=== PATIENT | male | born 1945 | race American Indian/Alaskan Native ===

== ENCOUNTER 2017-06-21 05:46 | Inpatient (IN) | payer MEDICARE, BC ==
[2017-06-08 09:29] VITALS: BMI 25.0
[2017-06-21] MEDS ORDERED: Propofol 10 mg/ml Inj (20 ML) ONE (07:01)
[2017-06-21] MEDS ORDERED: Midazolam 2 MG/2 ML VIAL ONE (07:01)
[2017-06-21] MEDS ORDERED: Lidocaine Hydrochloride 5 ML INJ ONE (07:01)
[2017-06-21] MEDS ORDERED: Lidocaine 2% Jelly (Uro-Jet) ONE (07:49)
[2017-06-21] MEDS ORDERED: Lactated Ringer's 1,000 ML IV ONE (08:05)
[2017-06-21] MEDS: cefTRIAXone IV 1 gm in Dextros 50 ML IVPB ONE ×2 (08:10→08:22)
[2017-06-21] MEDS ORDERED: HYDROmorphone 0.5 mg/0.5 ml ISec IVP PRN (08:48)
[2017-06-21] MEDS ORDERED: Oxycodone/Acetaminophen 5/325 mg Tab PO PRN (08:54)
--- NOTE | 2017-06-21 08:57 | PCM.SURG1 ---
Surgeon's Initial Post Op Note - Surgeon's Notes Surgeon: elsa palafox Liquor Tester: none Type of Anesthesia: General LMA Pre-Operative Diagnosis: bph Operative Findings: same Post-Operative Diagnosis: same Operation Performed: cysto. turp Specimen/Specimens Removed: urine, prostate Estimated Blood Loss: EBL {In ML}: 50 Blood Products Given: N/A Post-Op Condition: Good Date of Surgery/Procedure: 06/21/17 Time of Surgery/Procedure: 08:50
[2017-06-21] MEDS: Potassium Ch 20mEq in D5-1/2NS 1,000 ML IV SCH ×2 (11:45→12:08)
[2017-06-21] MEDS: cefTRIAXone IV 1 gm in Dextros 50 ML IVPB SCH (12:08)
[2017-06-21 12:44] VITALS: RESP 20
--- NOTE | 2017-06-21 18:33 | OP ---
PROCEDURE DATE: 06/21/2017 PREOPERATIVE DIAGNOSIS: Benign prostatic hypertrophy. POSTOPERATIVE DIAGNOSIS: Benign prostatic hypertrophy. PROCEDURE: Cystoscopy and transurethral resection of prostate. SURGEON: Dr. Divina Larsen. DESCRIPTION OF PROCEDURE: The patient received perioperative antibiotics. The patient received general anesthesia via laryngeal mask airway. The patient was placed in lithotomy position. Sequential compression stockings were applied. The genitalia prepped and draped in a sterile fashion. A 22-Moldovan cystoscope sheath was introduced under direct vision. The urethra, prostate, and bladder were inspected with 30-degree lens. FINDINGS: There was no stricture in the anterior urethra. There was evidence of trilobar prostatic hypertrophy. The prostatic urethra was occlusive. The prostatic urethra was 3 cm at length. There was no bladder neck contracture. There was no bladder tumor and there was no bladder stone. There was mild bladder trabeculation. The ureteral orifices were identified. There was no focal mucosal lesions within the bladder. Cystoscope and sheath were removed. A 26-Moldovan continuous flow resectoscope sheath was introduced under direct vision, using the visual obturator. The resectoscope was then inserted. The obstructing prostatic tissue was resected as follows. The suction was began at the bladder neck on the floor. Thereafter, the tissue was resected. Subsequently, the right lateral lobe and left lateral lobe were resected. Thereafter, the floor tissue and apical prostatic tissue were resected with index finger within the [place]ellie drape in the rectum. Hemostasis was achieved after each suction resection. The prostatic chips were reviewed, using the [employer] scientific evacuator. The resectoscope was reinserted. Hemostasis was complete. There was no residual prostatic chips. The ureteral orifices were intact. The resectoscope and sheath removed. A Munoz catheter was inserted. Bladder drainage was clear. The patient tolerated the procedure well without complication. Divina Larsen MD cc: Divina Larsen MD
--- NOTE | 2017-06-21 19:35 | CP.PCM.CON ---
Past Patient History - Past Medical History & Family History Past Medical History?: Yes - Past Social History Smoking Status: Never Smoked - CARDIAC Hx Hypercholesterolemia: Yes Hx Hypertension: Yes Hx Peripheral Edema: Yes (NO LONGER) - PULMONARY Hx Respiratory Disorders: No - NEUROLOGICAL Hx Neurological Disorder: No - HEENT Hx HEENT Problems: Yes (RINGING IN EARS) Hx Cataracts: Yes - RENAL Hx Chronic Kidney Disease: No - ENDOCRINE/METABOLIC Hx Endocrine Disorders: No - HEMATOLOGICAL/ONCOLOGICAL Hx Blood Disorders: Yes Hx Blood Transfusions: Yes Hx Blood Transfusion Reaction: No Hx Cancer: Yes (SQUAMOS LIP) - INTEGUMENTARY Hx Dermatological Problems: Yes Hx Eczema: Yes (NOT AT PRESENT) Hx Squamous Cell: Yes (LIP) - MUSCULOSKELETAL/RHEUMATOLOGICAL Hx Musculoskeletal Disorders: Yes Hx Arthritis: Yes Hx Falls: Yes - GASTROINTESTINAL Hx Gastrointestinal Disorders: Yes Hx Ulcer: Yes (GASTRIC ) - GENITOURINARY/GYNECOLOGICAL Hx Genitourinary Disorders: Yes Hx Prostate Problems: Yes - PSYCHIATRIC Hx Psychophysiologic Disorder: Yes (PTSD) Hx Substance Use: No - SURGICAL HISTORY Hx Surgeries: Yes Hx Appendectomy: Yes Other/Comment: REMOVAL SQUAMOS CA LIP HEMORRHOIDECTOMY - ANESTHESIA Hx Anesthesia: Yes Hx Anesthesia Reactions: No Hx Malignant Hyperthermia: No Has any member of the family had a problem w/ anesthesia?: No Meds Allergies/Adverse Reactions: Allergies Allergy/AdvReac Type Severity Reaction Status Date / Time codeine Allergy Intermediate RASH Verified 06/08/17 09:29 - Medications Medications: Current Medications Ceftriaxone Sodium (Rocephin Iv 1 Gm Duplex) 50 mls @ 100 mls/hr IVPB DAILY [facility] Last Admin: 06/21/17 12:08 Dose: Not Given Potassium Chloride/Dextrose/Sod Cl (Potassium Chl 20 Meq In D5-1/2ns) 1,000 mls @ 75 mls/hr IV .[id number] [facility] Last Admin: 06/21/17 12:08 Dose: Not Given Oxycodone/Acetaminophen (Percocet 5/325 Mg Tab) 1 tab PO Q4H PRN PRN Reason: Pain, moderate (4-7) Stop: 06/24/17 08:55 Last Admin: 06/21/17 15:45 Dose: 1 tab Results - Vital Signs Recent Vital Signs: Last Vital Signs Temp 98.3 F 06/21/17 15:10 Pulse 73 06/21/17 15:10 Resp 20 09/11/17 15:10 BP 123/68 06/21/17 15:10 Pulse Ox 97 06/21/17 15:10
[2017-06-21 23:29] VITALS: BP 104/64; TEMP 98.8
[2017-06-22] MEDS: Potassium Ch 20mEq in D5-1/2NS 1,000 ML IV SCH (04:00)
[2017-06-22 07:27] LABS: HEMATOCRIT 40.2 % (35.0-51.0); MEAN CELL VOLUME 82.2 fL (80.0-94.0); MEAN CORPUSCULAR HEMOGLOBIN 28.2 pg (27.0-31.0); MEAN CORPUSCULAR HGB CONC 34.3 g/dL (33.0-37.0); MEAN PLATELET VOLUME 9.5 fL (7.2-11.7); RED CELL DISTRIBUTION WIDTH 15.3 % (11.5-14.5); WHITE BLOOD COUNT 7.5 K/uL (4.8-10.8)
[2017-06-22 07:33] VITALS: PULSE 60; O2SAT 97
[2017-06-22 07:51] LABS: CHLORIDE 105 mmol/L (98-107)
[2017-06-22 07:52] LABS: POTASSIUM 3.5 mmol/L (3.6-5.2); SODIUM 139 mmol/L (132-148)
[2017-06-22 07:54] LABS: GFR AFRICAN-AMERICAN > 60
[2017-06-22 07:55] LABS: BLOOD UREA NITROGEN 15 mg/dL (9-20); CALCIUM 8.7 mg/dl (8.6-10.4); CARBON DIOXIDE 24 mmol/L (22-30); GLUCOSE,RANDOM 101 mg/dL (75-110)
[2017-06-22] MEDS: cefTRIAXone IV 1 gm in Dextros 50 ML IVPB SCH (10:21)
== END 2017-06-22 13:25 | disposition home or self-care (01) | DRG 714 ==
LOC: C.SDS 05:46 → C.9E 08:51 → C.3T 10:01
PROVIDERS: ADMIT Urology; ATTEND Urology
PROC: 0VB08ZZ Excision of Prostate, Via Natural or Artificial Opening Endoscopic (ICD-10-PCS; principal; 2017-06-21 07:30)
PROC: 0TJB8ZZ Inspection of Bladder, Via Natural or Artificial Opening Endoscopic (ICD-10-PCS; 2017-06-21 07:30)
DX: N40.1 Benign prostatic hyperplasia with lower urinary tract symptoms (principal); F43.10 Post-traumatic stress disorder, unspecified; R33.8 Other retention of urine

== ENCOUNTER 2017-08-09 09:04 | Day surgery (SDC) | payer MEDICARE, BC ==
[2017-06-08 09:29] VITALS: BMI 25.0
[2017-08-09] MEDS ORDERED: Lactated Ringer's 500 ML IV ONE ×2 (10:16)
[2017-08-09] MEDS ORDERED: cefTRIAXone IV 1 gm in Dextros 50 ML IVPB ONE (10:36)
[2017-08-09] MEDS ORDERED: Lidocaine 2% Jelly (Uro-Jet) ONE (10:37)
[2017-08-09] MEDS ORDERED: Iohexol 240 (50 ml) ONE (10:37)
[2017-08-09] MEDS ORDERED: Propofol 10 mg/ml Inj (20 ML) ONE (10:44)
[2017-08-09] MEDS ORDERED: HYDROmorphone 0.5 mg/0.5 ml ISec IVP PRN (11:17)
--- NOTE | 2017-08-09 12:16 | PCM.SURG1 ---
Surgeon's Initial Post Op Note - Surgeon's Notes Surgeon: elsa palafox Finance Professor: none Type of Anesthesia: Moderate Sedation{RN} Pre-Operative Diagnosis: urethral stricture Operative Findings: same Post-Operative Diagnosis: same Operation Performed: urethral dilation. cystoscopy Specimen/Specimens Removed: none Estimated Blood Loss: EBL {In ML}: 0 Blood Products Given: N/A Drains Used: No Drains Post-Op Condition: Good Date of Surgery/Procedure: 08/09/17 Time of Surgery/Procedure: 11:45
[2017-08-09 12:22] VITALS: BP 123/80; PULSE 82; RESP 18; TEMP 97; O2SAT 99
--- NOTE | 2017-08-13 04:21 | OP ---
UROLOGY OPERATIVE REPORT PROCEDURE DATE: 08/09/2017 PREOPERATIVE DIAGNOSIS: Poor urinary stream. POSTOPERATIVE DIAGNOSES: Urethral meatal stenosis. Urethral stricture. PROCEDURES: Urethral dilation. Cystoscopy. PROCEDURE FOLLOWS: The patient received sedation. The patient was placed in lithotomy position. Genitalia prepped and draped sterilely. Perioperative antibiotics were administered. A 17-Maldivian cystoscope sheath was then attempted to be inserted. However, there was the urethral meatal stenosis. The urethral meatus as well as fossa navicularis were dilated with Snyder sounds from size 14-Maldivian to 18-Maldivian. Thereafter, the 17-Maldivian cystoscope sheath was introduced under direct vision. Urethra, prostate and bladder were inspected. FINDINGS: There was no other stricture in the urethra. There was evidence of previous prostatic resection. The prostatic fossa was healing well. There was no stones within the bladder. There was no tumor within the bladder. Ureteral orifices were identified bilaterally and were normal. There was mild inflammation in the bladder mucosa as well. The cystoscope was removed. Further dilation was performed up to size 20-Maldivian with Madison sounds. The patient tolerated the procedure without complication. Divina Larsen MD cc: Divina Larsen MD
== END 2017-08-09 13:11 | disposition home or self-care (01) ==
LOC: C.SDS 09:04
PROVIDERS: ATTEND Urology
DX: N35.9 Urethral stricture, unspecified (principal)
CPT/HCPCS: 52281; 87086; J7120